=== PATIENT | male | born 2000 | race Caucasian/White ===

== ENCOUNTER 2021-04-12 15:06 | Emergency (ER) | payer OTHER, SELFPAY ==
[2021-04-12 15:10] VITALS: BP 153/66; PULSE 92; RESP 20; TEMP 37.4; O2SAT 100
--- NOTE | 2021-04-12 15:17 | ED.GENADULT ---
HPI - General Adult General Chief complaint: Seizure Stated complaint: body pains Time Seen by Provider: 04/12/21 15:17 Source: patient, family (Fianc?) and RN notes reviewed Mode of arrival: ambulatory History of Present Illness HPI narrative: 20-year-old male presents to the [facility] with complaints of 4 seizures this week. Patient appears postictal however is alert and oriented x3. No neurologic deficits. Walking with a normal gait. Patient appears postictal. Related Data Home Medications Medication Instructions Recorded Confirmed No Home Medications 04/12/21 04/12/21 Allergies Allergy/AdvReac Type Severity Reaction Status Date / Time No Known Allergies Allergy Verified 04/12/21 15:24 Review of Systems Review of Systems: All systems reviewed & are unremarkable except as noted in HPI and below Constitutional: Constitutional: Reports no additional constitutional complaints, Denies chills and Denies fever(s) Eyes: Eyes: Reports no additional eye complaints ENT: Reports system reviewed and no additional complaints, except as documented Cardiovascular: Cardiovascular: Reports no additional cardiovascular complaints Respiratory: Respiratory: Reports no additional respiratory complaints Gastrointestinal: Gastrointestinal: Reports no additional gastrointestinal complaints Musculoskeletal: Musculoskeletal: Reports no additional musculoskeletal complaints Integumentary/Breasts: Skin/Breast: Reports system reviewed and no additional complaints, except as docu Neurologic: Reports dizziness and Reports weakness Comments: Seizure activity Psychiatric: Psychiatric: Reports no additional psychiatric complaints Allergic/Immunologic: Allergic/Immunologic: Reports no additional allergic/immunologic complaints PMFSH Past Medical History Medical History (Updated 04/12/21 @ 20:03 by Rachele Chiu) No significant medical problems Surgical History Surgical History (Updated 04/12/21 @ 20:01 by Rachele Chiu) No significant past surgical history Social History Social History (Updated 04/12/21 @ 20:02 by Rachele Chiu) Living arrangements: with family Gender identity (if verbalized by the patient): Male Comments At the time of my signature, I reviewed and agree with the nursing past medical, surgical, social, and family history. There is no relevant family history pertinent to the patient complaint. Exam Const: General: healthy appearing, no acute distress and alert Nutritional Appearance: well nourished Orientation/consciousness: patient oriented x3 Limitations: no limitations HENMT: Head: normal to inspection Ears: external ears normal, TM's normal bilaterally and EAC's normal Eyes: Conjunctivae: conjunctivae normal Pupils: Equal, round and reactive pupils present Neck: Neck: normal visual inspection, no lymphadenopathy and no meningeal signs Chest: Chest palpation & inspection: normal inspection of the chest Resp: Effort & Inspection: normal respiratory effort and no use of accessory muscles Auscultation: clear to auscultation bilaterally, no rales, no rhonchi and no wheezes Cardio: Rate: regular rate Rhythm: regular rhythm : Testes: Testes normal Skin: General skin exam: normal color Rashes: no rashes Neuro: General: patient oriented x3, moves all extremities, no meningeal signs and no focal motor deficits Speech: normal speech Gait exam (Neuro): Normal gait present Extrem: General: normal to inspection and no pedal edema Psych: Appearance: grossly normal and well kempt Mental Status: mental status grossly normal Affect: normal affect Attitude: cooperative Thought content: Yes Normal thought content present Course Vital Signs Vital signs: Vital Signs Temperature 99.3 F 04/12/21 15:10 Pulse Rate 92 04/12/21 15:10 Respiratory Rate 20 04/12/21 15:10 Blood Pressure 153/66 H 04/12/21 15:10 Pulse Oximetry 100 04/12/21 15:10 Temperature 99.3 F
== END 2021-04-12 15:22 | disposition home or self-care (01) ==
LOC: EXPBETH 15:14
PROVIDERS: Emergency Provider Nurse Practitioner
DX: R56.9 Unspecified convulsions (principal)
CPT/HCPCS: 99213; G0463

== ENCOUNTER 2021-10-13 15:25 | Emergency (ER) | payer OTHER, SELFPAY ==
[2021-10-13 15:40] VITALS: BP 120/84; PULSE 86; RESP 14; TEMP 37.1; O2SAT 98
--- NOTE | 2021-10-13 16:15 | ED.GENADULT ---
HPI - General Adult General Chief complaint: Headache Stated complaint: Headache/Vomiting Time Seen by Provider: 10/13/21 16:15 Source: patient Mode of arrival: ambulatory Limitations: no limitations History of Present Illness HPI narrative: 20-year-old male presented requesting a return to work note. He states he had to leave work early yesterday due to migraine resulting in nausea and vomiting. He states he did not have his abortive medication with him so the headache progressed causing him to leave work. At this time he is asymptomatic. Denies any additional headache, nausea, vomiting, fever or chills. Related Data Home Medications Medication Instructions Recorded Confirmed levetiracetam 500 mg PO BID 10/13/21 10/13/21 topiramate 50 mg PO DAILY 10/13/21 10/13/21 Allergies Allergy/AdvReac Type Severity Reaction Status Date / Time No Known Allergies Allergy Verified 10/13/21 16:01 Review of Systems Review of Systems: CONSTITUTIONAL: Denies body aches, fever, chills, or sweats. EYES: Denies visual changes, redness, or discharge. ENT: Denies rhinorrhea, congestion, sore throat, or otalgia. CARDIOVASCULAR: Denies chest pain, palpitations, or edema. RESPIRATORY: Denies cough or dyspnea. GASTROINTESTINAL: Denies abdominal pain, nausea, vomiting, or diarrhea. GENITOURINARY: Denies dysuria or hematuria. SKIN: Denies rash, itching, or wounds. MUSCULOSKELETAL: Denies back pain, joint pain, or myalgia. NEUROLOGIC: Denies headache, numbness, tingling, or weakness. PSYCH: Denies depression or anxiety. All systems reviewed & are unremarkable except as noted in HPI and below PMFSH Past Medical History Medical History (Updated 10/13/21 @ 16:18 by Josefina Rick APRN) No significant medical problems Surgical History Surgical History No significant past surgical history Social History Social History Gender identity (if verbalized by the patient): Male Comments At time of signature, I have reviewed and agree with nursing past medical, surgical, social and family history unless otherwise noted. Please see nursing chart for further information. There is no relevant family history pertinent to the presenting complaint Exam Narrative: GENERAL: Well-appearing HEAD: Normocephalic, atraumatic. EYES: EOMI. PERRLA. No redness or drainage. Conjunctivae normal. ENT: Mucous membranes pink and moist. No rhinorrhea. NECK: Normal AROM. Supple. CHEST: No respiratory distress. Clear to auscultation. HEART: Regular rate and rhythm. No murmur appreciated. Normal peripheral pulses. ABDOMEN: Soft, nontender, nondistended MUSCULOSKELETAL: No bony tenderness. EXTREMITIES: Normal range of motion. No edema. SKIN: Warm, dry, no rash. Capillary refill normal. Normal skin turgor. NEURO: No focal deficits. Alert and oriented x3. Gait steady. PSYCH: Normal affect. No signs of depression or anxiety. Course Course Emergency Course: Patient is aware of diagnosis, understands and agrees to treatment plan. Anticipatory guidance given. Patient agrees to follow-up as directed and is aware of reasons to seek care at the emergency department. Portions of this record may have been created with voice recognition software Level of Care: Express Care Visit Vital Signs Vital signs: Vital Signs Temperature 98.8 F 10/13/21 15:40 Pulse Rate 86 10/13/21 15:40 Respiratory Rate 14 10/13/21 15:40 Blood Pressure 120/84 10/13/21 15:40 Pulse Oximetry 98 10/13/21 15:40 Temperature 98.8 F 10/13/21 15:40 Pulse Rate 86 10/13/21 15:40 Respiratory Rate 14 10/13/21 15:40 Blood Pressure 120/84 10/13/21 15:40 Pulse Oximetry 98 10/13/21 15:40 Medical Decision Making Vital Signs Vital Signs: Vital Signs Temperature 98.8 F 10/13/21 15:40 Pulse Rate 86 10/13/21 15:40 Respiratory Rate
== END 2021-10-13 16:20 | disposition home or self-care (01) ==
PROVIDERS: Emergency Provider Nurse Practitioner Family; PCP Nurse Practitioner Family
DX: R51.9 Headache, unspecified (principal); G40.909 Epilepsy, unspecified, not intractable, without status epilepticus
CPT/HCPCS: 99213; G0463